=== PATIENT | male | born 1940 | race Caucasian/White ===

== ENCOUNTER 2017-02-19 11:39 | Emergency (ER) | payer MEDICARE ==
--- NOTE | 2017-02-19 12:24 | ERNOTE ---
Lower Extremity HPI - Narrative Date of Service: 02/19/17 - General Lower Extremities Pain: hip: left, knee: left Time Seen by Provider: 02/19/17 12:12 Source: patient Exam Limitations: no limitations - Immun/Allergies/Home Medications Immunizations: IMMUNIZATION HX Immunizations Up to Date Yes History of Influenza Vaccine No Hx Pneumococcal Vaccination No Allergies/Adverse Reactions: Allergies Allergy/AdvReac Type Severity Reaction Status Date / Time No Known Allergies Allergy Verified 06/10/15 15:46 Home Medications: HOME MEDICATIONS Simvastatin [Zocor] 80 mg PO HS 01/01/13 [Last Taken 01/01/13 22:00] Carvedilol [Coreg] 25 mg PO BID 03/15/13 [Last Taken Unknown] Oxybutynin Chloride [Ditropan] 5 mg PO BID 03/15/13 [Last Taken Unknown] Digoxin [Lanoxin] 0.125 mg PO DAILY 08/31/13 [Last Taken Unknown] Acetaminophen [Tylenol] 650 mg PO Q6H PRN 02/26/14 [Last Taken Unknown] Warfarin Sodium [Coumadin] 4 mg PO SUMOTUWETHSA 11/08/14 [Last Taken Unknown] Glimepiride [Amaryl] 2 mg PO DAILY 01/03/16 [Last Taken Unknown] Warfarin Sodium [Coumadin] 6 mg PO FR 01/03/16 [Last Taken Unknown] Glimepiride [Amaryl] 2 mg PO DAILY 02/19/17 [Last Taken Unknown] Sennosides/Docusate Sodium [Senna-Docusate Sodium Tablet] 2 each PO DAILY [Last Taken Unknown] - History of Present Illness Narrative: 76 yo WM who uses a cane because he is unsteady. Thursday he did not use his cane and fell while ambulating at home. Fell onto his left side. Became sore but no bruising. Was able to weight bear. Called his PCP who advised coming to ED. Patient says his left hip and knee are minimally tender and sore. Date (Duration): 02/17/17 Location of Incident: home Method of Injury: Reports: fell Reason for Fall: Reports: lost balance Loss of Consciousness: Reports: no loss of consciousness Associated Symptoms: Reports: none Other Injuries: Reports: none Review of Systems - Review of Systems Constitutional: Present: no symptoms reported EYE: Present: no symptoms reported ENT: Present: no symptoms reported Respiratory: Present: no symptoms reported Cardiology: Present: no symptoms reported Gastrointestinal/Abdominal: Present: no symptoms reported Neurological: Present: no symptoms reported - Patient's Past Medical History Patient History - Medical: Other - difficulty hearing Patient History - Cardiac/Respiratory: Atrial Fibrillation, Myocardial Infarction Patient History - Cancer: No Hx of Cancer Patient History - Surgical Procedures: Back Surgery, Pneumothorax Patient History - Other: None - Social History Living Situations: alone Abuse History: No History of abuse Psych History: No pertinent hx Smoking Status: Never smoker Have you smoked in the past 12 months: No Do you dip or chew tobacco: No Alcohol Use: none Drug Use: none - Immunizations Immunizations Up to Date: Yes Hx Pneumococcal Vaccination: No History of Influenza Vaccine: No Physical Exam - Physical Exam General Appearance: Present: wd/wn, alert, no apparent distress Head Exam: Present: normal inspection, no evidence of injury Eye Exam: PERRL: bilateral, EOMI: bilateral Ears, Nose, Throat: Present: normal ENT inspection Neck: Present: normal inspection, nontender Respiratory: Present: no respiratory distress Cardiovascular/Chest: Present: irregularly irregular Gastrointestinal/Abdominal: Present: nontender, soft Back Exam: Present: normal inspection, no CVA tenderness, no vertebral tenderness Extremity Exam: Present: normal inspection, normal except - - slight tenderness along lateral left hip and upper thight. Minimal tenderness left knee along inferior joint Neurological Exam: Present: alert, oriented, no motor/sensory deficits ED Progress - Results and Orders Patient's Lab Results:: I have reviewed the patient's lab results. - Vital Signs Patient's Vital Signs:: I have reviewed the patient's vital signs. Vital Signs: Vital Signs 02/19/17 11:54 Temperature 36.5 C Pulse Rate 100 Respiratory 16 Rate Blood Pressure 164/95 O2 Sat by Pulse 94 Oximetry - X-Ray X-Ray #1 X-Ray: knee Interpretation: Reviewed by me X-Ray #2 X-Ray: pelvis Interpretation: Reviewed by me - Progress/Reassessment Chief Complaint: Lower Extremity Pain/ Injury Plan - Plan Plan: Fall precautions Contact PCP for possible walker Departure Clinical Impression: Fall, Multiple contusions - Departure Disposition: Home self-care Condition: Fair Instructions: Contusion, [id number] Additional Instructions: Contact PCP for consideration of walker. Referrals: Antonio Beaver MD [Primary Care Provider] -
[2017-02-19 13:17] VITALS: BP 125/90
== END 2017-02-19 13:40 | disposition home or self-care (01) ==
LOC: ER 11:39
DX: M25.552 Pain in left hip (principal); M79.652 Pain in left thigh; M25.562 Pain in left knee; W01.0XXA Fall on same level from slipping, tripping and stumbling without subsequent striking against object, initial encounter; Y92.009 Unspecified place in unspecified non-institutional (private) residence as the place of occurrence of the external cause

== ENCOUNTER 2017-03-27 17:52 | Emergency (ER) | payer MEDICARE ==
--- NOTE | 2017-03-27 18:09 | ERNOTE ---
<Kendra Snyder - Last Filed: 03/27/17 20:01> ER Male HPI Stated Complaint: uti ER Male: urinary retention Time Seen by Provider: 03/27/17 17:55 Source: patient Exam Limitations: no limitations Immunizations: IMMUNIZATION HX Immunizations Up to Date Yes History of Influenza Vaccine No Hx Pneumococcal Vaccination No Allergies/Adverse Reactions: Allergies No Known Allergies Allergy (Verified 03/27/17 18:03) NKA Home Medications: HOME MEDICATIONS Simvastatin [Zocor] 80 mg PO HS 01/01/13 [Last Taken 01/01/13 22:00] Carvedilol [Coreg] 25 mg PO BID 03/15/13 [Last Taken Unknown] Oxybutynin Chloride [Ditropan] 5 mg PO BID 03/15/13 [Last Taken Unknown] Digoxin [Lanoxin] 0.125 mg PO DAILY 08/31/13 [Last Taken Unknown] Acetaminophen [Tylenol] 650 mg PO Q6H PRN 02/26/14 [Last Taken Unknown] Warfarin Sodium [[facility]mad[facility]] [facility] 11/08/[facility] [Last Taken Unknown] Warfarin Sodium [Coumadin] 3 mg PO TU 01/03/16 [Last Taken Unknown] Glimepiride [Amaryl] 2 mg PO DAILY 02/19/17 [Last Taken Unknown] Sennosides/Docusate Sodium [Senna-Docusate Sodium Tablet] 2 each PO DAILY [Last Taken Unknown] Cefpodoxime Proxetil 100 mg PO BID 03/27/17 [Last Taken Unknown] Phenazopyridine HCl [Pyridium] 200 mg PO TID #6 tablet 03/27/17 [Last Taken Unknown] - History of Present Illness Narrative: Patient has' been dealing with this for a week' apparently had difficulty with urination, saw his urologist three days ago and was called with culture results today and started on an antibiotic, took the first dose at 15:00. His story keeps changing but he states that he has not been able to urinate at all, has lower abdominal pain, denies any other symptoms. He also states that he has not had any problems with his prostate with his prostate that he knows of (on review of the prior chart he has had testing done for a diagnosis of prostate cancer) Review of Systems - Review of Systems Constitutional: Absent: recent illness, fever ENT: Absent: sore throat Respiratory: Absent: shortness of breath Cardiology: Absent: chest pain Gastrointestinal/Abdominal: Absent: nausea Genitourinary: Present: no symptoms reported, decreased urinary output Musculoskeletal: Absent: back pain Neurological: Absent: headache - Patient's Past Medical History Patient History - Medical: Other - difficulty hearing Patient History - Cardiac/Respiratory: Myocardial Infarction, Myocardial Infarction Patient History - Cancer: Prostate Patient History - Surgical Procedures: Back Surgery, Pneumothorax Patient History - Other: None - Social History Living Situations: home Abuse History: No History of abuse Psych History: No pertinent hx Alcohol Use: none Drug Use: none - Immunizations Immunizations Up to Date: Yes Hx Pneumococcal Vaccination: No History of Influenza Vaccine: No Physical Exam - Physical Exam General Appearance: Present: wd/wn, alert, no apparent distress Respiratory: Present: no respiratory distress, normal breath sounds, no accessory muscle use, lungs clear Cardiovascular/Chest: Present: regular rate, rhythm, no murmur Gastrointestinal/Abdominal: Present: normal bowel sounds, nondistended, soft, tenderness - lower abdomen Back Exam: Present: no CVA tenderness Extremity Exam: Present: no edema Neurological Exam: Present: alert Skin Exam: Present: normal color, warm/dry ED Progress - Results and Orders Patient's Lab Results:: I have reviewed the patient's lab results. - Vital Signs Patient's Vital Signs:: I have reviewed the patient's vital signs. Vital Signs: Vital Signs 03/27/17 17:54 Temperature 37.1 C Pulse Rate 105 H Respiratory 12 Rate Blood Pressure 146/102 O2 Sat by Pulse 96 Oximetry - Progress/Reassessment Chief Complaint: Genitourinary Problem Progress Note-Subjective: 03/27/17 19:37 bladder scan showed only 400ml of urine, story that patient has not urinated all day is somewhat questionable as his ability to give a history is limited. will hydrate patient (orally) and see if he is able to urinate - Transfer of Care Physician Sign Out: Kendra Snyder Receiving Physician: Radha Guzman Expected Disposition: Discharge Departure Clinical Impression: UTI (lower urinary tract infection), Urinary retention - Departure Disposition: Home self-care Condition: Stable Instructions: Urinary Tract Infection, Adult, [id number] Additional Instructions: He will have a urinary tract infection for which he will have just been started on antibiotics. Sometimes with urinary tract infections one can experience slight urinary retention. It is most important for him to be very generous fluids. Buttocks and Pyridium as instructed. Please follow-up with your regular doctor on Thursday. Prescriptions: Phenazopyridine HCl [Pyridium] 200 mg PO TID #6 tablet <Radha Guzman - Last Filed: 03/27/17 20:53> ER Male HPI Immunizations: IMMUNIZATION HX Immunizations Up to Date Yes History of Influenza Vaccine No Hx Pneumococcal Vaccination No ED Progress - Vital Signs Vital Signs: Vital Signs 03/27/17 03/27/17 03/27/17 17:54 18:48 19:21 Temperature 37.1 C 37.0 C 37.0 C Pulse Rate 105 H 94 92 Respiratory 12 18 15 Rate Blood Pressure 146/102 145/81 145/97 O2 Sat by Pulse 96 94 96 Oximetry 03/27/17 03/27/17 19:41 20:34 Temperature 36.7 C Pulse Rate 92 63 Respiratory 15 16 Rate Blood Pressure 107/59 156/87 O2 Sat by Pulse 94 93 Oximetry Plan - Plan Plan: This patient was seen and evaluated exam and blood tests and urine tests were ordered per previous provider. By the time I arrived to patient's bedside he had already urinated. The history of present illness is that the patient is unable to urinate. Patient has a UTI for which she has recently begun antibiotics. He has not been given any Pyridium however. He presents to the ER concerned that he has not been urinating all day. His bladder scan revealed 400 mL of urine. By the time I saw this patient he will had successfully urinated in our emergency room. He also felt significantly better. At this time, since patient is able to urinate on his own A don't feel that it is medically necessary to insert a an indwelling Mahmood catheter I do think however the patient should continue taking his antibiotics and for his bladder spasms and pain he should keep placed on Pyridium at least the next 2 days.
[2017-03-27 18:24] LABS: Hemoglobin 15.7 gm/dL (13.5-18.0); Mean Cell Volume 86.6 fl (78-100); Mean Corpuscular Hemoglobin 28.9 pg (27-31); Mean Corpuscular Hgb Conc 33.4 g/dl (32-36); Mean Platelet Volume 12.5 fl (6.0-9.5); Neutrophil # 7.9 K/mm3 (1.3-6.0); Neutrophil % 75.8 % (42-75.0); Platelet Count 222 K/mm3 (150-450); Red Blood Count 5.43 M/mm3 (4.7-6.0); Red Cell Distribution Width 13.1 % (11.5-14.0); White Blood Count 10.4 K/mm3 (4.0-10.5)
[2017-03-27 18:37] LABS: Albumin * 3.5 gm/dl (3.4-5.0); BUN/Creatinine Ratio 21.5 (9.0-21.6); Bilirubin, Total 1.1 mg/dL (0.0-1.1); Ca. Corrected For Albumin 9.2 mg/dL (8.4-10.2); Calcium * 9.1 mg/dL (7.9-10.9); Carbon Dioxide 26.8 mmol/L (24-32.6); Potassium 4.8 mmol/L (3.4-4.6)
[2017-03-27 18:57] LABS: Urine Color Pale Yellow
[2017-03-27 18:58] LABS: Urine Appearance Cloudy; Urine Bilirubin Negative (NEGATIVE); Urine Blood 250 /ul (NEGATIVE); Urine Ketone Negative (NEGATIVE); Urine Nitrite Negative (NEGATIVE); Urine Protein >100 mg/dL (NEGATIVE); Urine Specific Gravity 1.005 SP.GR. (1.005-1.030); Urine Urobilinogen Normal (NORMAL); Urine pH 8.5 pH (5.0-7.0)
[2017-03-27 18:59] LABS: Urine Bacteria 4+; Urine RBC >50 /hpf (0-5); Urine WBC >50 /hpf (0-5)
[2017-03-27 20:42] VITALS: BP 156/87
[2017-03-27] MEDS ORDERED: PHENAZOPYRIDINE HCL 100 MG TABLET PO ONE (20:53)
[2017-03-27] MEDS ORDERED: PHENAZOPYRIDINE HCL 100 MG TABLET ONE (20:59)
== END 2017-03-27 21:09 | disposition home or self-care (01) ==
LOC: ER 17:52
DX: N39.0 Urinary tract infection, site not specified (principal)

== ENCOUNTER 2019-05-13 14:46 | Inpatient (IN) ==
[2019-05-13 15:13] LABS: Hematocrit 39.8 % (42.0-52.0); Hemoglobin 12.8 gm/dL (13.5-18.0); Mean Cell Volume 87.5 fl (78-100); Mean Corpuscular Hemoglobin 28.1 pg (27-31); Mean Corpuscular Hgb Conc 32.2 g/dl (32-36); Mean Platelet Volume 10.8 fl (8-11.3); Neutrophil # 17.4 K/mm3 (1.3-6.0); Neutrophil % 91.6 % (42-75.0); Platelet Count 255 K/mm3 (150-450); Red Blood Count 4.55 M/mm3 (4.7-6.0); Red Cell Distribution Width 13.9 % (11.5-14.0)
[2019-05-13] MEDS ORDERED: cefTRIAXone SODIUM 1,000 MG/100 ML BAG IV ONE (15:15)
[2019-05-13] MEDS ORDERED: ACETAMINOPHEN 1,000 MG/100 ML BTL IV ONE (15:17)
[2019-05-13 15:18] LABS: Urine Bilirubin Negative (NEGATIVE); Urine Blood 250 /ul (NEGATIVE); Urine Ketone Negative (NEGATIVE); Urine Nitrite Negative (NEGATIVE); Urine Protein 30 mg/dL (NEGATIVE); Urine Specific Gravity 1.015 SP.GR. (1.005-1.030); Urine Urobilinogen Normal (NORMAL)
[2019-05-13] MEDS: NORMAL SALINE 1,000 ML IV PRN ×4 (15:18→21:46)
[2019-05-13 15:25] LABS: Prothrombin Time (Patient) 33.5 Seconds (9.1-10.7)
[2019-05-13 15:25] LABS: Urine Appearance Cloudy (CLEAR); Urine Bacteria 2+; Urine Color Yellow; Urine RBC >50 /hpf (0-5); Urine WBC >50 /hpf (0-5)
--- NOTE | 2019-05-13 15:29 | ERNOTE ---
Neuro HPI ER Record Presenting Symptoms: confusion Time Seen by Provider: 05/13/19 14:46 Source: EMS Exam Limitations: clinical condition Immunizations: IMMUNIZATION HX Immunizations Up to Date Yes History of Influenza Vaccine Yes Hx Pneumococcal Vaccination No Allergies/Adverse Reactions: Allergies Allergy/AdvReac Type Severity Reaction Status Date / Time No Known Allergies Allergy Verified 05/13/19 14:59 Home Medications: HOME MEDICATIONS Acetaminophen [Tylenol] 650 mg PO Q6H PRN 02/26/14 [Last Taken Unknown] Warfarin Sodium [Coumadin] 4 mg PO TUTHSA 01/03/16 [Last Taken Unknown] blood sugar diagnostic See Dose Instructions .ROUTE .MEDSUPPLY #100 ea 11/09/18 [Last Taken Unknown] lancets See Dose Instructions .ROUTE .MEDSUPPLY #100 ea 11/09/18 [Last Taken Unknown] digoxin 125 mcg (0.125 mg) tablet 125 mcg PO DAILY #90 tab 12/29/18 [Last Taken Unknown] oxybutynin chloride 5 mg tablet 10 mg PO BID #360 tab 12/29/18 [Last Taken Unknown] warfarin 2 mg tablet 2 mg PO SUMOWEFR #40 tab 02/11/19 [Last Taken Unknown] carvedilol 25 mg tablet 12.5 mg PO BID #60 tab 02/22/19 [Last Taken Unknown] ferrous sulfate 325 mg (65 mg iron) tablet 325 mg PO DAILY #90 tab 02/22/19 [Last Taken Unknown] sennosides 8.6 mg tablet 17.2 mg PO DAILY #180 tab 02/22/19 [Last Taken Unknown] Finasteride [Proscar] 5 mg PO DAILY 05/13/19 [Last Taken Unknown] Glimepiride [Amaryl] 2 mg PO DAILY 05/13/19 [Last Taken Unknown] Simvastatin 80 mg PO HS 05/13/19 [Last Taken Unknown] - History of Present Illness Narrative: EMs reports that home health nurse reported that patient still was taking to them on the phone when they called around 10:00, when the nurse arrived this afternoon, patient was lethargic, sitting in a chair (possibly all night?), was drooling and possibly one side not as strong as the other, concern for possible stroke. Patient was seen in the ER for a fall yesterday, complained of shoulder pain only, denied any head injury or loss of consciousness, he ambulated out of the ER with a walker. He has a history of UTIs is not on any antibiotics currently, denied any urinary symptoms at the visit yesterday, no further history is available due to patient's decreased mental status Onset: cannot confirm onset, >3 hours - Character of Deficits Baseline Cognition: Present: alert, oriented x 4 Baseline Gait: Present: uses a cane/walker Associated Symptoms: Reports: confused Prior Treament: Reports: recently seen Review of Systems - Narrative Narrative: unable to obtain Medical History (Last Reviewed 05/13/19 @ 15:24 by Kendra Snyder MD) Cardiomyopathy Myocardial infarct, old Repeated falls Repeated falls Afib Diabetes Enlarged prostate HTN (hypertension) Hyperlipemia Surgical History: Surgical History (Last Reviewed 05/13/19 @ 15:24 by Kendra Snyder MD) History of tooth extraction (Acute) Family History: Family History (Last Reviewed 05/13/19 @ 16:13 by Mira Jessica RN) Other No pertinent family history Social History: (Last Reviewed 05/13/19 @ 16:13 by Mira Jessica, RN) Tobacco: Smoking Status: Unknown if ever smoked Physical Exam - Physical Exam General Appearance: Present: wd/wn, no apparent distress, lethargic Head Exam: Present: normal inspection, no evidence of injury Eye Exam: Normal inspection: bilateral Ears, Nose, Throat: Present: dry mucous membranes Respiratory: Present: no respiratory distress - but increased respiratory rate, normal breath sounds, no accessory muscle use, lungs clear Cardiovascular/Chest: Present: tachycardia Gastrointestinal/Abdominal: Present: normal bowel sounds, nondistended, soft, other - palpably distended bladder Male Genitals Exam: Present: normal genitalia Back Exam: Present: normal inspection Extremity Exam: Present: normal except - - old contusion on left lower leg unchanged from yesterday Neurological Exam: Present: other - lethargic, strategic marketing associate equal, follows some commands, no obvious lateralizing signs Skin Exam: Present: normal color, warm/dry Mirtha Coma Scale - Assess Eye Opening: To Voice Motor: Obeys Commands Verbal: Confused - Total Coma Scale Total: 13 Progress - Results and Orders Patient's Lab Results:: I have reviewed the patient's lab results. - Vital Signs Patient's Vital Signs:: I have reviewed the patient's vital signs. - EKG EKG #1 EKG: atrial fibrillation, other - tachycardis, TWI in inferior leads and V4-6 similar to prior EKGs EKG read: Interp. by me - X-Ray X-Ray #1 X-Ray: chest - no acute changes Interpretation: Reviewed by me - CT/Ultrasound CT/Ultrasound Narrative: CT head: no acute findings - Progress/Reassessment Progress Note-Subjective: 05/13/19 15:[address] with radiologist, no acute abnormality 05/13/19 16:02 called contact on on chart who is a family friend and discussed that patient is in serious condition, she will try to contact family labs and vitals consistent with UTI with severe sepsis though LA wnl, sepsis fluid bolus started (1 liter infused) and rocephin given BP continues to trend down, consider starting levophed 05/13/19 16:[address] Matamoros, okay to admit for UTI with sepsis call back from Amalia, family friend, patient's daughter is , son in law has helped patient make a will, Amalia will try to find it to see if there is a PoA 05/13/19 16:50 Patient more alert, BP around 100 systolic, HR 100 05/13/19 17:05 Amalia visiting patient, no PoA available, son in law is Harpreet Patrick, lives in [place] but no phone number available there is another (estranged) daughter who they have tried to contact in the past with no success 05/13/19 18:16 BP stable around 100 systolic on NS at 126ml/hr, urine output of about 1ml/kg/hour patient more alert, states he is feeling better, denies any pain can say who his son in law is and part of his phone number home health nurse reports that patient has IPOST, will make it available tomorrow Departure Clinical Impression: Urinary retention, Severe sepsis UTI (urinary tract infection) Qualifiers: Urinary tract infection type: site unspecified Hematuria presence: without hematuria Qualified Code(s): N39.0 - Urinary tract infection, site not specified CRF (chronic renal failure) Qualifiers: Chronic kidney disease stage: unspecified stage Qualified Code(s): N18.9 - Chronic kidney disease, unspecified Atrial fibrillation Qualifiers: Atrial fibrillation type: unspecified Qualified Code(s): I48.91 - Unspecified atrial fibrillation - Departure Disposition: Still a patient Condition: Fair
[2019-05-13 15:35] LABS: INR 3.55 INR (0.92-1.08); Partial Thrombolplastin Time 50.4 Seconds (24-32)
[2019-05-13 15:37] LABS: Anion Gap 15.1 mmol/L (6.8-13.8); BUN/Creatinine Ratio 21.7 (9.0-21.6); Bilirubin, Total 0.9 mg/dL (0.0-1.1); Ca. Corrected For Albumin 9.5 mg/dL (8.4-10.2); Carbon Dioxide 27.3 mmol/L (24-32.6); Potassium 4.4 mmol/L (3.4-4.6); Total Protein 9.7 gm/dL (6.2-8.2)
[2019-05-13 15:58] LABS: CRP 22.5 mg/dL (0.0-0.9)
[2019-05-13] MEDS ORDERED: NOREPINEPHRINE BITARTRATE 4 MG in DEXTROSE 5 % IN WATER 496 ML IV PRN ×2 (15:58)
[2019-05-13] MEDS ORDERED: NORMAL SALINE 1,000 ML IV ONE (17:25)
--- NOTE | 2019-05-13 20:34 | HP ---
Chief Complaint - Chief Complaint Date of Service: 05/13/19 Time of Service: 19:55 Chief Complaint: confusion History of Present Illness: Pt unable to contribute history. Hx obtained from ED doc and chart. He was seen in our ED yesterday after a fall, and was able to ambulate from the ED with a walker. His home health nurse spoke with him on the phone this morning. When she went to see him this afternoon, he was minimally responsive, and he was brought to the ED. There was concern for stroke, and CT head was negative. When a feliciano catheter was placed, apparently the urine appeared to strongly resemble pus. His WBC is 19, procalcitonin 7.15. He is showing signs of renal failure with creatinine of 3.08 and GFR of 20. Lactate is not elevated. BP was a bit low in the ED, but improved with fluids. He has been tachycardic and ta chypnic, both of which are improving with fluids and Rocephin. He is oxygenating on room air. INR is 3.55. He is anticoagulated with warfarin for afib. UA positive for leukocyte esterase, blood, 2+ bacteria. He apparently has no close family, but his home health nurse does have an I-Post form that will be brought here in the am. Medical History (Last Reviewed 05/13/19 @ 16:13 by Mira Jessica RN) Cardiomyopathy Myocardial infarct, old Repeated falls Repeated falls Afib Diabetes Enlarged prostate HTN (hypertension) Hyperlipemia Surgical History: Surgical History (Last Reviewed 05/13/19 @ 16:13 by Mira Jessica RN) History of tooth extraction (Acute) Family History: Family History (Last Reviewed 05/13/19 @ 16:13 by Mira Jessica RN) Other No pertinent family history Social History: (Last Reviewed 05/13/19 @ 16:13 by Mira Jessica RN) Tobacco: Smoking Status: Unknown if ever smoked Review Of Systems (GEN) - Review of Systems Generalized/Overall Review: Present: No Symptoms Reported - unable to obtain due to mentation Immunizations: IMMUNIZATION HX Immunizations Up to Date Yes History of Influenza Vaccine Yes Hx Pneumococcal Vaccination No Allergies/Adverse Reactions: Allergies Allergy/AdvReac Type Severity Reaction Status Date / Time No Known Allergies Allergy Verified 05/13/19 14:59 Home Medications: HOME MEDICATIONS Acetaminophen [Tylenol] 650 mg PO Q6H PRN 02/26/14 [Last Taken Unknown] Warfarin Sodium [Coumadin] 4 mg PO TUTHSA 01/03/16 [Last Taken Unknown] blood sugar diagnostic See Dose Instructions .ROUTE .MEDSUPPLY #100 ea 11/09/18 [Last Taken Unknown] lancets See Dose Instructions .ROUTE .MEDSUPPLY #100 ea 11/09/18 [Last Taken Unknown] digoxin 125 mcg (0.125 mg) tablet 125 mcg PO DAILY #90 tab 12/29/18 [Last Taken Unknown] oxybutynin chloride 5 mg tablet 10 mg PO BID #360 tab 12/29/18 [Last Taken Unknown] warfarin 2 mg tablet 2 mg PO SUMOWEFR #40 tab 02/11/19 [Last Taken Unknown] ferrous sulfate 325 mg (65 mg iron) tablet 325 mg PO DAILY #90 tab 02/22/19 [Last Taken Unknown] Carvedilol [Coreg] 25 mg PO BID 05/13/19 [Last Taken Unknown] Finasteride [Proscar] 5 mg PO DAILY 05/13/19 [Last Taken Unknown] Glimepiride [Amaryl] 2 mg PO DAILY 05/13/19 [Last Taken Unknown] Sennosides [Senna Lax] 8.6 mg PO DAILY 05/13/19 [Last Taken Unknown] Simvastatin 80 mg PO HS 05/13/19 [Last Taken Unknown] Exam - Exam Vital Signs: Vital Signs - Last Taken Temp 37.3 C 05/13/19 17:38 Pulse 101 H 05/13/19 18:26 Resp 23 H 05/13/19 18:26 BP 105/53 05/13/19 18:26 Pulse Ox 94 05/13/19 18:26 Constitutional: Present: No distress, Somnolent, Elderly Respiratory: Present: lungs clear, normal breath sounds, no respiratory distress, other - oxygenating in the 90's on room air Cardiovascular/Chest: Present: irregularly irregular, other - large bruise of left lateral-posterior chest wall with mild abrasion. Absent: edema Abdomen: Present: Normal bowel sounds, soft, nontender Extremity: Absent: lower extremity edema - 8 cm soft tissue mass of left medial lower leg without erythema or bruising, soft Neurologic: Present: other - will answer some simple questions Diagnostic Studies: Abnormal Lab Results 05/13/19 05/13/1905/13/19 Range/Units 15:05 15:05 15:05 WBC 19.0 H (4.0-10.5) K/mm3 RBC 4.55 L (4.7-6.0) M/mm3 Hgb 12.8 L (13.5-18.0) gm/dL Hct 39.8 L (42.0-52.0) % Immature Gran % (Auto) 0.80 H (0.001-0.429) % Immature Gran # (Auto) 0.16 H (0.000-0.0310) K/mm3 Neutrophils % 91.6 H (42-75.0) % Lymphocytes % 3.2 L (20-51) % Neutrophils # 17.4 H (1.3-6.0) K/mm3 Lymphocytes # 0.60 L (1.5-3.5) k/mm3 ESR 104 H (0-10) mm/hr PT 33.5 H (9.1-10.7) Seconds INR (Anticoag Therapy) 3.55 H (0.92-1.08) INR PTT ([place]) 50.4 H (24-32) Seconds Anion Gap (6.8-13.8) mmol/L BUN (6-23) mg/dL Creatinine (0.4-1.4) mg/dL Est GFR (Non-Af Amer) (60-130) mL/min BUN/Creatinine Ratio (9.0-21.6) Random Glucose (70-110) mg/dL C-Reactive Prot, Quant (0.0-0.9) mg/dL Total Protein (6.2-8.2) gm/dL Albumin (3.4-5.0) gm/dl Procalcitonin (0.05-0.50) ng/mL Urine Protein (NEGATIVE) mg/dL Urine Blood (NEGATIVE) /ul Ur Leukocyte Esterase (NEGATIVE) /ul Urine RBC (0-5) /hpf Urine WBC (0-5) /hpf Urine Bacteria (NONE) 05/13/19 05/13/19 05/13/19 Range/Units 15:05 15:05 15:07 WBC (4.0-10.5) K/mm3 RBC (4.7-6.0) M/mm3 Hgb (13.5-18.0) gm/dL Hct (42.0-52.0) % Immature Gran % (Auto) (0.001-0.429) % Immature Gran # (Auto) (0.000-0.0310) K/mm3 Neutrophils % (42-75.0) % Lymphocytes % (20-51) % Neutrophils # (1.3-6.0) K/mm3 Lymphocytes # (1.5-3.5) k/mm3 ESR (0-10) mm/hr PT (9.1-10.7) Seconds INR (Anticoag Therapy) (0.92-1.08) INR PTT ([place]) (24-32) Seconds Anion Gap 15.1 H (6.8-13.8) mmol/L BUN 69 H D (6-23) mg/dL Creatinine 3.18 H D (0.4-1.4) mg/dL Est GFR (Non-Af Amer) 20 L D (60-130) mL/min BUN/Creatinine Ratio 21.7 H (9.0-21.6) Random Glucose 260 H (70-110) mg/dL C-Reactive Prot, Quant 22.5 H (0.0-0.9) mg/dL Total Protein 9.7 H (6.2-8.2) gm/dL Albumin 3.0 L (3.4-5.0) gm/dl Procalcitonin 7.15 H (0.05-0.50) ng/mL Urine Protein 30 H (NEGATIVE) mg/dL Urine Blood 250 H (NEGATIVE) /ul Ur Leukocyte Esterase 500 H (NEGATIVE) /ul Urine RBC >50 H (0-5) /hpf Urine WBC >50 H (0-5) /hpf Urine Bacteria 2+ H (NONE) Laboratory Results WBC 19.0 K/mm3 (4.0-10.5) H 05/13/19 15:05 RBC 4.55 M/mm3 (4.7-6.0) L 05/13/19 15:05 Hgb 12.8 gm/dL (13.5-18.0) L 05/13/19 15:05 Hct 39.8 % (42.0-52.0) L 05/13/19 15:05 MCV 87.5 fl (78-100) 05/13/19 15:05 MCH 28.1 pg (27-31) 05/13/19 15:05 MCHC 32.2 g/dl (32-36) 05/13/19 15:05 RDW 13.9 % (11.5-14.0) 05/13/19 15:05 Plt Count 255 K/mm3 (150-450) 05/13/19 15:05 MPV 10.8 fl (8-11.3) 05/13/19 15:05 Immature Gran % (Auto) 0.80 % (0.001-0.429) H 05/13/19 15:05 Immature Gran # (Auto) 0.16 K/mm3 (0.000-0.0310) H 05/13/19 15:05 Neutrophils % 91.6 % (42-75.0) H 05/13/19 15:05 Lymphocytes % 3.2 % (20-51) L 05/13/19 15:05 Monocytes % 4.2 % (0.0-9) 05/13/19 15:05 Eosinophils % 0.0 % (0.0-3.0) 05/13/19 15:05 Basophils % 0.2 % (0.0-1.0) 05/13/19 15:05 Nucleated RBC % 0.0 k/mm3 (0-1) 05/13/19 15:05 Neutrophils # 17.4 K/mm3 (1.3-6.0) H 05/13/19 15:05 Lymphocytes # 0.60 k/mm3 (1.5-3.5) L 05/13/19 15:05 Monocytes # 0.8 k/mm3 (0.0-1.0) 05/13/19 15:05 Eosinophils # 0.0 k/mm3 (0.0-0.7) 05/13/19 15:05 Absolute Basophils 0.0 k/mm3 (0.0-0.1) 05/13/19 15:05 ESR 104 mm/hr (0-10) H 05/13/19 15:05 PT 33.5 Seconds (9.1-10.7) H 05/13/19 15:05 INR (Anticoag Therapy) 3.55 INR (0.92-1.08) H 05/13/19 15:05 PTT ([place]) 50.4 Seconds (24-32) H 05/13/19 15:05 Sodium 136 mmol/L (132-142) 05/13/19 15:05 Plasma Sodium 139 mmol/L (130-142) 05/13/19 15:05 Potassium 4.4 mmol/L (3.4-4.6) 05/13/19 15:05 Chloride 98 mmol/L (97-106) 05/13/19 15:05 Carbon Dioxide 27.3 mmol/L (24-32.6) 05/13/19 15:05 Anion Gap 15.1 mmol/L (6.8-13.8) H 05/13/19 15:05 BUN 69 mg/dL (6-23) H D 05/13/19 15:05 Creatinine 3.18 mg/dL (0.4-1.4) H D 05/13/19 15:05 Est GFR (Non-Af Amer) 20 mL/min (60-130) L D 05/13/19 15:05 BUN/Creatinine Ratio 21.7 (9.0-21.6) H 05/13/19 15:05 Random Glucose 260 mg/dL (70-110) H 05/13/19 15:05 Lactic Acid, Venous 2.0 mmol/L (0.4-2.0) 05/13/19 15:05 Calcium 9.0 mg/dL (7.9-10.9) 05/13/19 15:05 Calcium Adj for Albumin 9.5 mg/dL (8.4-10.2) 05/13/19 15:05 Total Bilirubin 0.9 mg/dL (0.0-1.1) 05/13/19 15:05 AST 31 U/L (0-48) 05/13/19 15:05 ALT 24 U/L (19-67) 05/13/19 15:05 Alkaline Phosphatase 71 U/L (50-170) 05/13/19 15:05 C-Reactive Prot, Quant 22.5 mg/dL (0.0-0.9) H 05/13/19 15:05 Total Protein 9.7 gm/dL (6.2-8.2) H 05/13/19 15:05 Albumin 3.0 gm/dl (3.4-5.0) L 05/13/19 15:05 Procalcitonin 7.15 ng/mL (0.05-0.50) H 05/13/19 15:05 Urine Color Yellow 05/13/19 15:07 Urine Appearance Cloudy (CLEAR) 05/13/19 15:07 Urine pH 6.0 pH (5.0-7.0) 05/13/19 15:07 Ur Specific [place] 1.015 SP.GR. (1.005-1.030) 05/13/19 15:07 Urine Protein 30 mg/dL (NEGATIVE) H 05/13/19 15:07 Urine Glucose (UA) Negative mg/dL (NEGATIVE) 05/13/19 15:07 Urine Ketones Negative mg/dL (NEGATIVE) 05/13/19 15:07 Urine Blood 250 /ul (NEGATIVE) H 05/13/19 15:07 Urine Nitrate Negative (NEGATIVE) 05/13/19 15:07 Urine Bilirubin Negative mg/dl (NEGATIVE) 05/13/19 15:07 Prot Sulfosalicylic Acd 1+ mg/dL (0) 05/13/19 15:07 Urine Urobilinogen Normal EU/dl (NORMAL) 05/13/19 15:07 Ur Leukocyte Esterase 500 /ul (NEGATIVE) H 05/13/19 15:07 Urine RBC >50 /hpf (0-5) H 05/13/19 15:07 Urine WBC >50 /hpf (0-5) H 05/13/19 15:07 Ur Epithelial Cells 0-5 /hpf (0-5) 05/13/19 15:07 Urine Bacteria 2+ (NONE) H 05/13/19 15:07 Urine Culture Comments Culture to follow 05/13/19 15:07 Assessment/Plan - Assessment/Plan (1) Sepsis Assessment: With his source of infection, low BP, fever, tachypnea, tachycardia, altered mental status, he met severe sepsis criteria. His temp, tachypnea, and tachycardia have improved with a dose of Rocephin and fluids, so he is no longer severely septic. ED doc reports his mentation improved while in the ED. His UA was positive for leuk esterase, blood, protein, 2+ bacteria. Urine and blood cultures pending. His lactate was not elevated at 2.0. His BP was a bit low, but recovered with fluids. He has a DNR in his chart, and his home health nurse will be bringing his I-Post form tomorrow. He does not have family to help make medical decisions. Problem: Acute Qualifiers: Severe sepsis acute organ dysfunction type: acute renal failure (2) Altered mental status Assessment: Likely due to infection, but will need to monitor this closely. He apparently lives alone. Head CT was negative. ED doc reports he was able to conversate yesterday. Problem: Acute (3) UTI (lower urinary tract infection) Assessment: Continue Rocephin. Urine culture pending. Problem: Acute (4) Hypertension Assessment: His BP was low in the ED, so will hold antihypertensive until his mentation improved, and if his BP is consistently greater than 140/90. Problem: Chronic Qualifiers: (5) CRF (chronic renal failure) Assessment: Creatinine in Jan of this year was 2.0, which may be his baseline. Creatinine today is 3.18 and GFR is 20 (30's in January). Will need to check his I-Post form to see if wishes regarding potential dialysis are addressed. Problem: Chronic Qualifiers: Chronic kidney disease stage: unspecified stage Qualified Code(s): N18.9 - Chronic kidney disease, unspecified (6) CAD (coronary artery disease) Problem: Chronic Qualifiers: (7) Diabetes mellitus Assessment: Is prescribed glimepiride at baseline. Will hold until his mentation improves. Will administer low dose SSI. Problem: Chronic Qualifiers: Diabetes mellitus senior care insulin use: without senior care use (8) Atrial fibrillation Assessment: INR was 3.55. Will hold warfarin, and check INR 05/15. Will restart coreg and digoxin when he is able to swallow. HR is around 100 currently. Will need to administer IV medication if HR elevated to consistently greater than 120. Problem: Chronic Qualifiers: Atrial fibrillation type: unspecified Qualified Code(s): I48.91 - Unspecified atrial fibrillation (9) Contusion, chest wall Assessment: likely from fall yesterday. Will need to watch for resolution. He also has a soft tissue mass of his left lower leg, and will check with his home health nurse to see how long it's been present. Problem: Acute Qualifiers: Laterality: left
[2019-05-13] MEDS: INSULIN LISPRO 100 UNITS/ML VIAL SC SCH (21:36)
[2019-05-14] MEDS ORDERED: ACETAMINOPHEN 1,000 MG/100 ML BTL IV PRN (01:41)
[2019-05-14] MEDS ORDERED: CEFEPIME HCL 2 GM in DEXTROSE 5 % IN WATER 100 ML IV SCH ×4 (01:45→01:46)
--- NOTE | 2019-05-14 01:49 | PN ---
Progess Note - Interim Date: 05/14/19 Time: :46 Narrative: 05/14/19 01:46 Patient has been having continued tachycardia and tachypnea. Adding O2 via NC was not helpful, and he has again been febrile. Will broaden antibiotic coverage with cefepime, q24 dosing due to low creatinine clearance. Unchanged mentation.
[2019-05-14] MEDS ORDERED: MEROPENEM 1 GM in NORMAL SALINE 100 ML IV SCH (05:30)
[2019-05-14] MEDS ORDERED: DOXYCYCLINE HYCLATE 100 MG in DEXTROSE 5 % IN WATER 100 ML IV SCH ×2 (05:30)
[2019-05-14] MEDS: NORMAL SALINE 1,000 ML IV PRN (05:44)
[2019-05-14 06:08] LABS: Hematocrit 34.9 % (42.0-52.0); Hemoglobin 11.2 gm/dL (13.5-18.0); Mean Cell Volume 87.5 fl (78-100); Mean Corpuscular Hemoglobin 28.1 pg (27-31); Mean Corpuscular Hgb Conc 32.1 g/dl (32-36); Mean Platelet Volume 11.1 fl (8-11.3); Neutrophil # 14.3 K/mm3 (1.3-6.0); Neutrophil % 90.9 % (42-75.0); Platelet Count 200 K/mm3 (150-450); Red Blood Count 3.99 M/mm3 (4.7-6.0); Red Cell Distribution Width 14.2 % (11.5-14.0); White Blood Count 15.7 K/mm3 (4.0-10.5)
[2019-05-14] MEDS ORDERED: KETOROLAC TROMETHAMINE 15 MG/ML VIAL IV PRN (06:16)
[2019-05-14 06:24] LABS: Albumin * 2.3 gm/dl (3.4-5.0); Anion Gap 17.1 mmol/L (6.8-13.8); BUN/Creatinine Ratio 22.3 (9.0-21.6); Bilirubin, Total 0.7 mg/dL (0.0-1.1); Ca. Corrected For Albumin 8.9 mg/dL (8.4-10.2); Calcium * 7.9 mg/dL (7.9-10.9); Potassium 4.1 mmol/L (3.4-4.6); Total Protein 8.1 gm/dL (6.2-8.2)
[2019-05-14 06:41] LABS: INR 5.28 INR (0.92-1.08)
[2019-05-14] MEDS: INSULIN LISPRO 100 UNITS/ML VIAL SC SCH (07:17)
--- NOTE | 2019-05-14 07:30 | PN ---
Subjective - Date and Time Seen Date: 05/14/19 Time: 07:12 Subjective Narrative: Patient has remained tachypneic and tachycardic overnight. He is less responsive now than he was in the ED late yesterday afternoon. Abx were broadened for fevers early this morning. Objective - Review of Systems Generalized/Overall Review: Reports: Fever - patient unable to contribute due to mental status - Vitals Vitals: Last Vital Signs Temp 39.2 C H 05/14/19 05:00 Pulse 113 H 05/14/19 05:00 Resp 36 H 05/14/19 05:00 BP 102/58 05/14/19 05:00 Pulse Ox 94 05/14/19 05:00 - Abnormal Lab Findings Abnormal Lab Findings: Abnormal Lab Results 05/13/19 05/13/19 05/13/19 Range/Units 15:05 15:05 15:05 WBC 19.0 H (4.0-10.5) K/mm3 RBC 4.55 L (4.7-6.0) M/mm3 Hgb 12.8 L (13.5-18.0) gm/dL Hct 39.8 L (42.0-52.0) % RDW (11.5-14.0) % Immature Gran % (Auto) 0.80 H (0.001-0.429) % Immature Gran # (Auto) 0.16 H (0.000-0.0310) K/mm3 Neutrophils % 91.6 H (42-75.0) % Lymphocytes % 3.2 L (20-51) % Neutrophils # 17.4 H (1.3-6.0) K/mm3 Lymphocytes # 0.60 L (1.5-3.5) k/mm3 ESR 104 H (0-10) mm/hr PT 33.5 H (9.1-10.7) Seconds INR (Anticoag Therapy) 3.55 H (0.92-1.08) INR PTT ([place]) 50.4 H (24-32) Seconds Plasma Sodium (130-142) mmol/L Carbon Dioxide (24-32.6) mmol/L Anion Gap (6.8-13.8) mmol/L BUN (6-23) mg/dL Creatinine (0.4-1.4) mg/dL Est GFR (Non-Af Amer) (60-130) mL/min BUN/Creatinine Ratio (9.0-21.6) Random Glucose (70-110) mg/dL AST (0-48) U/L C-Reactive Prot, Quant (0.0-0.9) mg/dL Total Protein (6.2-8.2) gm/dL Albumin (3.4-5.0) gm/dl Procalcitonin (0.05-0.50) ng/mL Urine Protein (NEGATIVE) mg/dL Urine Blood (NEGATIVE) /ul Ur Leukocyte Esterase (NEGATIVE) /ul Urine RBC (0-5) /hpf Urine WBC (0-5) /hpf Urine Bacteria (NONE) 05/13/19 05/13/19 05/13/19 Range/Units 15:05 15:05 15:07 WBC (4.0-10.5) K/mm3 RBC (4.7-6.0) M/mm3 Hgb (13.5-18.0) gm/dL Hct (42.0-52.0) % RDW (11.5-14.0) % Immature Gran % (Auto) (0.001-0.429) % Immature Gran # (Auto) (0.000-0.0310) K/mm3 Neutrophils % (42-75.0) % Lymphocytes % (20-51) % Neutrophils # (1.3-6.0) K/mm3 Lymphocytes # (1.5-3.5) k/mm3 ESR (0-10) mm/hr PT (9.1-10.7) Seconds INR (Anticoag Therapy) (0.92-1.08) INR PTT ([place]) (24-32) Seconds Plasma Sodium (130-142) mmol/L Carbon Dioxide (24-32.6) mmol/L Anion Gap 15.1 H (6.8-13.8) mmol/L BUN 69 H D (6-23) mg/dL Creatinine 3.18 H D (0.4-1.4) mg/dL Est GFR (Non-Af Amer) 20 L D (60-130) mL/min BUN/Creatinine Ratio 21.7 H (9.0-21.6) Random Glucose 260 H (70-110) mg/dL AST (0-48) U/L C-Reactive Prot, Quant 22.5 H (0.0-0.9) mg/dL Total Protein 9.7 H (6.2-8.2) gm/dL Albumin 3.0 L (3.4-5.0) gm/dl Procalcitonin 7.15 H (0.05-0.50) ng/mL Urine Protein 30 H (NEGATIVE) mg/dL Urine Blood 250 H (NEGATIVE) /ul Ur Leukocyte Esterase 500 H (NEGATIVE) /ul Urine RBC >50 H (0-5) /hpf Urine WBC >50 H (0-5) /hpf Urine Bacteria 2+ H (NONE) 05/14/19 05/14/19 05/14/19 Range/Units 06:00 06:00 06:00 WBC 15.7 H (4.0-10.5) K/mm3 RBC 3.99 L (4.7-6.0) M/mm3 Hgb 11.2 L (13.5-18.0) gm/dL Hct 34.9 L (42.0-52.0) % RDW 14.2 H (11.5-14.0) % Immature Gran % (Auto) 0.60 H (0.001-0.429) % Immature Gran # (Auto) 0.10 H (0.000-0.0310) K/mm3 Neutrophils % 90.9 H (42-75.0) % Lymphocytes % 5.2 L (20-51) % Neutrophils # 14.3 H (1.3-6.0) K/mm3 Lymphocytes # 0.82 L (1.5-3.5) k/mm3 ESR (0-10) mm/hr PT 49.0 H (9.1-10.7) Seconds INR (Anticoag Therapy) 5.28 H* (0.92-1.08) INR PTT ([place]) (24-32) Seconds Plasma Sodium 143 H (130-142) mmol/L Carbon Dioxide 22.0 L (24-32.6) mmol/L Anion Gap 17.1 H (6.8-13.8) mmol/L BUN 69 H (6-23) mg/dL Creatinine 3.10 H (0.4-1.4) mg/dL Est GFR (Non-Af Amer) 21 L (60-130) mL/min BUN/Creatinine Ratio 22.3 H (9.0-21.6) Random Glucose 257 H (70-110) mg/dL AST 62 H (0-48) U/L C-Reactive Prot, Quant (0.0-0.9) mg/dL Total Protein (6.2-8.2) gm/dL Albumin 2.3 L (3.4-5.0) gm/dl Procalcitonin (0.05-0.50) ng/mL Urine Protein (NEGATIVE) mg/dL Urine Blood (NEGATIVE) /ul Ur Leukocyte Esterase (NEGATIVE) /ul Urine RBC (0-5) /hpf Urine WBC (0-5) /hpf Urine Bacteria (NONE) - Exam Constitutional: Present: Mild distress, Somnolent Respiratory: Present: No wheezing, other - tachypneic to the 40's. Absent: crackles Cardiovascular/Chest: Present: irregularly irregular - HR 116 Abdomen: Present: soft. Absent: tender Extremity: Present: other - bruising of left toes, no change in left medial lower leg mass Neurologic: Present: other - does not respond to name Cauti Physician Documentation - Urinary Catheter Management Urethral (Mahmood) Date of Insertion: 05/13/19 Time of Insertion: 15:07 Assessment/Plan - Problems/Diagnosis (1) Sepsis Problem: Acute Qualifiers: Severe sepsis acute organ dysfunction type: acute renal failure Severe sepsis shock status: without septic shock Narrative: Lab called this morning with positive blood cultures, but these films are not yet in his chart. Antibiotics broadened as he continued to have fevers overnight. He is tachycardic and tachypneic. Blood pressure has been okay and he has not required pressors, however his last couple of blood pressure readings have been 90s over 50s. Fluids are continuing at 150 cc/h. He is critically ill and we need to verify his wishes through his iPost form. If he desires full treatment, will transfer to another facility where an ICU is available. Initial lactate was normal at 2.0, and repeat pending. Procalcitonin was positive at 7.15. ED doc reported pus in his urine, however his urinalysis had only 2+ bacteria, and was negative for nitrites. It was positive for leukocyte esterase. Urine culture pending. He received a dose of Rocephin, which was transitioned to cefepime overnight when he spiked a fever. He has gram positive bacilli growing on aerobe and anearobe blood cultures. With these results, abx were again changed to merrem and IV doxycycline. (2) Altered mental status Problem: Acute Narrative: Mentation has decreased since yesterday in the ED, likely due to his severe infection. (3) UTI (lower urinary tract infection) Problem: Acute Narrative: Continue merrem. Mahmood catheter in place. Urine appears clear, yellow. (4) Hypertension Problem: Chronic Qualifiers: (5) CRF (chronic renal failure) Problem: Chronic Qualifiers: Chronic kidney disease stage: unspecified stage Qualified Code(s): N18.9 - Chronic kidney disease, unspecified Narrative: Baseline creatinine appears to be around 2.0. Admission creatinine was 3.18, and is 3.0 today. (6) CAD (coronary artery disease) Problem: Chronic Qualifiers: Narrative: He was prescribed Coreg and digoxin, but due to his mental status, unable to give him his p.o. medications. (7) Diabetes mellitus Problem: Chronic Qualifiers: Diabetes mellitus remote computer terminal operator insulin use: without [facility] use Narrative: Continue sliding-scale insulin. Blood sugars have been in the 200s mostly this hospitalization. (8) Atrial fibrillation Problem: Chronic Qualifiers: Atrial fibrillation type: unspecified Qualified Code(s): I48.91 - Unspecified atrial fibrillation Narrative: Unable to administer his home Coreg and digoxin due to his mental status. He is prescribed warfarin. His INR is supratherapeutic and increasing. Admission INR was 3.55, today's INR is 5.28. (9) Contusion, chest wall Problem: Acute Qualifiers: Laterality: left Narrative: He was seen in the ED the day before admission for a fall and has a contusion of his left posterior chest wall. Also has a soft tissue mass of his medial left lower leg which could potentially be posttraumatic.
[2019-05-14] MEDS ORDERED: ENOXAPARIN SODIUM 30 MG/0.3 ML SYRG SC SCH (07:45)
[2019-05-14] MEDS ORDERED: NORMAL SALINE 1,000 ML IV ONE (08:13)
--- NOTE | 2019-05-14 09:28 | DS ---
Transfer Discharge Summary - Diagnosis(s)/Problems (1) Sepsis Problem: Acute (2) Altered mental status Problem: Acute (3) UTI (lower urinary tract infection) Problem: Acute (4) Hypertension Problem: Chronic (5) CRF (chronic renal failure) Problem: Chronic (6) CAD (coronary artery disease) Problem: Chronic (7) Diabetes mellitus Problem: Chronic (8) Atrial fibrillation Problem: Chronic (9) Contusion, chest wall Problem: Acute - Course Description of Stay: Pt unable to contribute history. Hx obtained from ED doc and chart. He was seen in our ED 05/12/19 after a fall, and was able to ambulate from the ED with a walker. His home health nurse spoke with him on the phone around 10 am on 05/13. When she went to see him that afternoon, he was minimally responsive, and he was brought to the ED. There was concern for stroke, and CT head was negative. When a feliciano catheter was placed, apparently the urine appeared to strongly resemble pus. His WBC is 19, procalcitonin 7.15. He is showing signs of renal failure with creatinine of 3.08 and GFR of 20. Lactate is not elevated. BP was a bit low in the ED, but improved with fluids. He has been tachycardic and tachypnic, both of which initially improved with fluids and Rocephin. ED doc reported improvement in his condition during his stay in the ED, and he was admitted to our facility. Overnight, he again developed tachypnea and was febrile. His antibiotics were broadened to cefepime. In the morning, his blood cultures were positive for gram positive and gram negative bacilli, and antibiotics were further broadened to meropenem and doxycycline. He was more difficult to waken the morning of 05/14. INR further worsened from 3.55 to 5.28, though his warfarin is held. His blood pressure decreased, and was consistently in the 80's over 40's, and did not respond to 1L bolus of NS, so levophed was started. Given his worsened condition, and no I-Post form, decision was made to transfer to a higher level of care. [facility] ICU is full, and [place] ED physician, Dr. Judd, accepted him. ED doc at [place] recommended he be intubated and a central line placed. Discussed placing central line with our surgeon, but with two peripheral IVs, it was felt a central line is not needed for the ambulance ride. Attempted to contact other physicians to see if they would manage a vent, but no one is available. Procedures Performed: none - Results and Findings Results and Findings: Laboratory Results - last 24 hr 05/13/19 05/13/19 05/13/19 15:05 15:05 15:05 WBC 19.0 H RBC 4.55 L Hgb 12.8 L Hct 39.8 L MCV 87.5 MCH 28.1 MCHC 32.2 RDW 13.9 Plt Count 255 MPV 10.8 Immature Gran % (Auto) 0.80 H Immature Gran # (Auto) 0.16 H Neutrophils % 91.6 H Lymphocytes % 3.2 L Monocytes % 4.2 Eosinophils % 0.0 Basophils % 0.2 Nucleated RBC % 0.0 Neutrophils # 17.4 H Lymphocytes # 0.60 L Monocytes # 0.8 Eosinophils # 0.0 Absolute Basophils 0.0 ESR 104 H PT 33.5 H INR (Anticoag Therapy) 3.55 H PTT ([place]) 50.4 H pCO2 pO2 HCO3 Total CO2 Base Excess ABG pH ABG O2 Sat (Measured) Sodium Plasma Sodium Potassium Chloride Carbon Dioxide Anion Gap BUN Creatinine Est GFR (Non-Af Amer) BUN/Creatinine Ratio Random Glucose Lactic Acid, Venous Calcium Calcium Adj for Albumin Total Bilirubin AST ALT Alkaline Phosphatase C-Reactive Prot, Quant Total Protein Albumin Procalcitonin Urine Color Urine Appearance Urine pH Ur Specific [place] Urine Protein Urine Glucose (UA) Urine Ketones Urine Blood Urine Nitrate Urine Bilirubin Prot Sulfosalicylic Acd Urine Urobilinogen Ur Leukocyte Esterase Urine RBC Urine WBC Ur Epithelial Cells Urine Bacteria Urine Culture Comments 05/13/19 05/13/19 05/13/19 15:05 15:05 15:05 WBC RBC Hgb Hct MCV MCH MCHC RDW Plt Count MPV Immature Gran % (Auto) Immature Gran # (Auto) Neutrophils % Lymphocytes % Monocytes % Eosinophils % Basophils % Nucleated RBC % Neutrophils # Lymphocytes # Monocytes # Eosinophils # Absolute Basophils ESR PT INR (Anticoag Therapy) PTT ([place]) pCO2 pO2 HCO3 Total CO2 Base Excess ABG pH ABG O2 Sat (Measured) Sodium 136 Plasma Sodium 139 Potassium 4.4 Chloride 98 Carbon Dioxide 27.3 Anion Gap 15.1 H BUN 69 H D Creatinine 3.18 H D Est GFR (Non-Af Amer) 20 L D BUN/Creatinine Ratio 21.7 H Random Glucose 260 H Lactic Acid, Venous 2.0 Calcium 9.0 Calcium Adj for Albumin 9.5 Total Bilirubin 0.9 AST 31 ALT 24 Alkaline Phosphatase 71 C-Reactive Prot, Quant 22.5 H Total Protein 9.7 H Albumin 3.0 L Procalcitonin 7.15 H Urine Color Urine Appearance Urine pH Ur Specific [place] Urine Protein Urine Glucose (UA) Urine Ketones Urine Blood Urine Nitrate Urine Bilirubin Prot Sulfosalicylic Acd Urine Urobilinogen Ur Leukocyte Esterase Urine RBC Urine WBC Ur Epithelial Cells Urine Bacteria Urine Culture Comments 05/13/19 05/14/19 05/14/19 15:07 06:00 06:00 WBC 15.7 H RBC 3.99 L Hgb 11.2 L Hct 34.9 L MCV 87.5 MCH 28.1 MCHC 32.1 RDW 14.2 H Plt Count 200 MPV 11.1 Immature Gran % (Auto) 0.60 H Immature Gran # (Auto) 0.10 H Neutrophils % 90.9 H Lymphocytes % 5.2 L Monocytes % 3.2 Eosinophils % 0.0 Basophils % 0.1 Nucleated RBC % 0.0 Neutrophils # 14.3 H Lymphocytes # 0.82 L Monocytes # 0.5 Eosinophils # 0.0 Absolute Basophils 0.0 ESR PT INR (Anticoag Therapy) PTT ([place]) pCO2 pO2 HCO3 Total CO2 Base Excess ABG pH ABG O2 Sat (Measured) Sodium 140 Plasma Sodium 143 H Potassium 4.1 Chloride 105 Carbon Dioxide 22.0 L Anion Gap 17.1 H BUN 69 H Creatinine 3.10 H Est GFR (Non-Af Amer) 21 L BUN/Creatinine Ratio 22.3 H Random Glucose 257 H Lactic Acid, Venous Calcium 7.9 Calcium Adj for Albumin 8.9 Total Bilirubin 0.7 AST 62 H ALT 41 Alkaline Phosphatase 68 C-Reactive Prot, Quant Total Protein 8.1 Albumin 2.3 L Procalcitonin Urine Color Yellow Urine Appearance Cloudy Urine pH 6.0 Ur Specific [place] 1.015 Urine Protein 30 H Urine Glucose (UA) Negative Urine Ketones Negative Urine Blood 250 H Urine Nitrate Negative Urine Bilirubin Negative Prot Sulfosalicylic Acd 1+ Urine Urobilinogen Normal Ur Leukocyte Esterase 500 H Urine RBC >50 H Urine WBC >50 H Ur Epithelial Cells 0-5 Urine Bacteria 2+ H Urine Culture Comments Culture to follow 05/14/19 05/14/19 05/14/19 06:00 06:17 06:18 WBC RBC Hgb Hct MCV MCH MCHC RDW Plt Count MPV Immature Gran % (Auto) Immature Gran # (Auto) Neutrophils % Lymphocytes % Monocytes % Eosinophils % Basophils % Nucleated RBC % Neutrophils # Lymphocytes # Monocytes # Eosinophils # Absolute Basophils ESR PT 49.0 H INR (Anticoag Therapy) 5.28 H* PTT ([place]) pCO2 31.3 L pO2 82.3 L HCO3 20.6 L Total CO2 21.6 Base Excess -2.7 L ABG pH 7.44 ABG O2 Sat (Measured) 96.6 Sodium Plasma Sodium Potassium Chloride Carbon Dioxide Anion Gap BUN Creatinine Est GFR (Non-Af Amer) BUN/Creatinine Ratio Random Glucose Lactic Acid, Venous 1.8 Calcium Calcium Adj for Albumin Total Bilirubin AST ALT Alkaline Phosphatase C-Reactive Prot, Quant Total Protein Albumin Procalcitonin Urine Color Urine Appearance Urine pH Ur Specific [place] Urine Protein Urine Glucose (UA) Urine Ketones Urine Blood Urine Nitrate Urine Bilirubin Prot Sulfosalicylic Acd Urine Urobilinogen Ur Leukocyte Esterase Urine RBC Urine WBC Ur Epithelial Cells Urine Bacteria Urine Culture Comments - Medications Medications: Active Medications Enoxaparin Sodium (Lovenox) 30 mg SC Q24H GRAZYNA Stop: 06/13/19 07:46 Last Admin: 05/14/19 08:16 Dose: 30 mg Documented by: Sodium Chloride (Sodium Chloride 0.9%) 1,000 mls @ 999 mls/hr IV .Q1H1M PRN PRN Reason: HYDRATION Last Infusion: 05/13/19 17:53 Dose: Infused Documented by: Sodium Chloride (Sodium Chloride 0.9%) 1,000 mls @ 150 mls/hr IV .Q6H40M PRN PRN Reason: HYDRATION Stop: 06/12/19 21:24 Last Infusion: 05/14/19 05:45 Dose: 150 mls/hr Documented by: Acetaminophen (Ofirmev) 1,000 mg in 100 mls @ 400 mls/hr IV Q8H PRN PRN Reason: Pain Stop: 06/13/19 01:42 Last Infusion: 05/14/19 02:31 Dose: Infused Documented by: Meropenem 1 gm/ Sodium (Chloride) 100 mls @ 200 mls/hr IV Q12H GRAZYNA; Protocol Stop: 06/13/19 05:31 Last Infusion: 05/14/19 07:24 Dose: Infused Documented by: Doxycycline Hyclate 100 mg/ (Dextrose/Water) 100 mls @ 100 mls/hr IV Q12H [facility]; Protocol Stop: 06/13/19 05:31 Last Infusion: 05/14/19 07:24 Dose: Infused Documented by: Sodium Chloride (Sodium Chloride 0.9%) 1,000 mls @ 999 mls/hr IV .Q1H1M ONE Stop: 05/14/19 09:13 Last Admin: 05/14/19 08:19 Dose: 999 mls/hr Documented by: Insulin Human Lispro (Humalog) 0 units SC [facility]; Protocol Stop: 06/12/19 21:01 Last Admin: 05/14/19 07:17 Dose: 4 units Documented by: Ketorolac Tromethamine (Toradol) 15 mg IV Q6H PRN PRN Reason: Fever Stop: 05/19/19 06:17 Last Admin: 05/14/19 06:35 Dose: 15 mg Documented by: Discontinued Medications Ceftriaxone Sodium (Rocephin 1000 Mg Er Piggyback) 1,000 mg in 100 mls @ 200 mls/hr IV ONCE ONE Stop: 05/13/19 15:44 Last Infusion: 05/13/19 16:05 Dose: Infused Documented by: Acetaminophen (Ofirmev) 1,000 mg in 100 mls @ 400 mls/hr IV ONCE ONE Stop: 05/13/19 15:31 Last Infusion: 05/13/19 15:39 Dose: Infused Documented by: Sodium Chloride (Sodium Chloride 0.9%) 1,000 mls @ 999 mls/hr IV .Q1H1M ONE Stop: 05/13/19 18:25 Last Infusion: 05/14/19 00:14 Dose: Infused Documented by: Cefepime HCl 2 gm/ Dextrose/ (Water) 100 mls @ 200 mls/hr IV Q12H [facility]; Protocol Stop: 06/13/19 01:46 Last Admin: 05/14/19 02:15 Dose: Not Given Documented by: Cefepime HCl 2 gm/ Dextrose/ (Water) 100 mls @ 200 mls/hr IV Q24H [facility]; Protocol Stop: 06/13/19 01:47 Last Infusion: 05/14/19 02:46 Dose: Infused Documented by: - Disposition Disposition: Short Term Hospital Inpatient Condition: Critical Discharge Date: 05/14/19
[2019-05-14 09:51] VITALS: BP 83/47
== END 2019-05-14 10:00 | disposition short-term general hospital (02) | DRG 872 ==
LOC: ER 14:46 → SCU 17:21
PROVIDERS: ADMIT Family Medicine; ATTEND Family Medicine
CPT/HCPCS: 36415; 36600; 70450; 71010; 71045; 80053; 81001; 82803; 83605; 84145; 85025; 85610; 85652; 85730; 86140; 87040; 87077; 87086; 87186; 93005; 96365; 96367; 99285; J0131